=== PATIENT | male | born 1970 | race Caucasian/White ===

== ENCOUNTER → 2016-11-07 | Outpatient (REF) | payer OTHER ==
[2016-11-07 12:21] LABS: ALBUMIN 3.8 GM/DL (3.2-5.2); ALBUMIN/GLOBULIN RATIO 1.27 (1.00-1.93); ALKALINE PHOSPHATASE 96 U/L (45-117); ALT/SGPT 78 U/L (12-78); ANION GAP 11 MEQ/L (8-16); AST/SGOT 27 U/L (15-37); BILIRUBIN,TOTAL 0.4 MG/DL (0.2-1.0); BLOOD UREA NITROGEN 15 MG/DL (7-18); CALCIUM LEVEL 8.7 MG/DL (8.5-10.1); CARBON DIOXIDE LEVEL 26 MEQ/L (21-32); CHLORIDE LEVEL 103 MEQ/L (98-107); CHOLESTEROL LEVEL 171 MG/DL (<200); CREATININE FOR GFR 0.83 MG/DL (0.70-1.30); GLOMERULAR FILTRATION RATE > 60.0 (>60); GLUCOSE, FASTING 215 MG/DL (70-105); POTASSIUM SERUM 4.1 MEQ/L (3.5-5.1); SODIUM LEVEL 140 MEQ/L (136-145); TOTAL PROTEIN 6.8 GM/DL (6.4-8.2); TRIGLYCERIDES LEVEL 211 MG/DL (<150)
== END ==
LOC: M SFHCCLAY 09:24
PROVIDERS: ATTEND Family Medicine
DX: E11.9 Type 2 diabetes mellitus without complications (principal); E78.5 Hyperlipidemia, unspecified

== ENCOUNTER → 2017-01-13 | Outpatient (REF) | payer OTHER ==
[2017-01-13 13:22] LABS: ANION GAP 6 MEQ/L (8-16); BLOOD UREA NITROGEN 9 MG/DL (7-18); CALCIUM LEVEL 8.8 MG/DL (8.5-10.1); CARBON DIOXIDE LEVEL 29 MEQ/L (21-32); CHLORIDE LEVEL 103 MEQ/L (98-107); CREATININE FOR GFR 0.85 MG/DL (0.70-1.30); GLOMERULAR FILTRATION RATE > 60.0 (>60); GLUCOSE, FASTING 132 MG/DL (70-105); POTASSIUM SERUM 4.2 MEQ/L (3.5-5.1); SODIUM LEVEL 138 MEQ/L (136-145)
== END ==
LOC: M SFHCCLAY 08:54
PROVIDERS: ATTEND Family Medicine
DX: E11.9 Type 2 diabetes mellitus without complications (principal)

== ENCOUNTER → 2017-03-24 | Outpatient (CLI) | payer OTHER ==
--- NOTE | 2017-03-24 15:24 | REP ---
LEFT SHOULDER, THREE VIEWS: HISTORY: Pain. Postoperative change is present. A metal screw is present in the glenoid. There is no acute fracture or dislocation. There is narrowing of the glenohumeral joint space. IMPRESSION: Degenerative change as described above. Signed by Shadi Mendoza MD 03/24/2017 03:26 P
== END ==
LOC: M WUC 13:42
PROVIDERS: ATTEND Physician Assistant
DX: M19.012 Primary osteoarthritis, left shoulder (principal)

== ENCOUNTER → 2017-04-25 | Outpatient (REF) | payer OTHER ==
[2017-04-26 12:09] LABS: ALBUMIN 4.2 GM/DL (3.2-5.2); ALBUMIN/GLOBULIN RATIO 1.45 (1.00-1.93); ALKALINE PHOSPHATASE 82 U/L (45-117); ALT/SGPT 47 U/L (12-78); ANION GAP 4 MEQ/L (8-16); AST/SGOT 20 U/L (15-37); BILIRUBIN,TOTAL 0.5 MG/DL (0.2-1.0); BLOOD UREA NITROGEN 12 MG/DL (7-18); CALCIUM LEVEL 9.3 MG/DL (8.5-10.1); CARBON DIOXIDE LEVEL 31 MEQ/L (21-32); CHLORIDE LEVEL 105 MEQ/L (98-107); CREATININE FOR GFR 0.76 MG/DL (0.70-1.30); GLOMERULAR FILTRATION RATE > 60.0 (>60); GLUCOSE, FASTING 109 MG/DL (70-105); POTASSIUM SERUM 4.7 MEQ/L (3.5-5.1); SODIUM LEVEL 140 MEQ/L (136-145); TOTAL PROTEIN 7.1 GM/DL (6.4-8.2)
== END ==
LOC: M SFHCCLAY 13:54
PROVIDERS: ATTEND Family Medicine
DX: E11.9 Type 2 diabetes mellitus without complications (principal)

== ENCOUNTER 2017-08-23 00:59 | Emergency (ER) | payer OTHER ==
[2017-08-23] MEDS: ONDANSETRON 4MG/2ML VIAL (J2405) IV (02:00)
[2017-08-23] MEDS: MORPHINE 4 MG/ML 1ML SYRINGE IV (02:00)
[2017-08-23] MEDS: ACETAMINOPHEN TAB 650MG DOSE (2X325MG) PO (02:00)
[2017-08-23 02:08] LABS: BASO % 0.3 % (0.0-1.0); EOS # 0.1 10^3/uL (0.0-0.50); EOS % 0.4 % (0.0-3.0); HEMATOCRIT 43.1 % (42.0-52.0); IMMATURE GRANULOCYTE # 0.1 10^3/uL (0-0); IMMATURE GRANULOCYTE % 0.4 % (0-0); LYMPH # 1.4 10^3/uL (1.5-4.5); LYMPH % 10.1 % (24.0-44.0); MEAN CORPUSCULAR HEMOGLOBIN 33.1 pg (27.0-33.0); MEAN CORPUSCULAR HGB CONC 34.8 g/dl (32.0-36.5); MEAN CORPUSCULAR VOLUME 95.1 fl (80.0-96.0); MONO # 1.5 10^3/uL (0.0-0.8); MONO % 10.4 % (0.0-5.0); NEUTROPHILS # 10.9 10^3/uL (1.8-7.7); NEUTROPHILS % 78.4 % (36.0-66.0); PLATELET COUNT, AUTOMATED 179 10^3/uL (150-450); RED BLOOD COUNT 4.53 10^6/uL (4.30-6.10); RED CELL DISTRIBUTION WIDTH 11.9 % (11.5-14.5); WHITE BLOOD COUNT 13.9 10^3/uL (4.0-10.0)
[2017-08-23 02:26] LABS: ESTIMATED AVERAGE GLUCOSE 166 MG/DL (60-110); HEMOGLOBIN A1c 7.4 %
[2017-08-23 02:31] LABS: ANION GAP 6 MEQ/L (8-16); BLOOD UREA NITROGEN 10 MG/DL (7-18); CARBON DIOXIDE LEVEL 30 MEQ/L (21-32); CHLORIDE LEVEL 99 MEQ/L (98-107); CREATININE FOR GFR 0.99 MG/DL (0.70-1.30); GLOMERULAR FILTRATION RATE > 60.0 (>60); GLUCOSE, FASTING 237 MG/DL (70-100); SODIUM LEVEL 135 MEQ/L (136-145)
[2017-08-23 02:34] LABS: LACTIC ACID SEPSIS PROTOCOL 1.1 MMOL/L (0.4-2.0)
[2017-08-23] MEDS ORDERED: ISOVUE-370 76% 100ML VIAL (Q9967) As Ordered (02:40)
[2017-08-23] MEDS ORDERED: BUPIVACAINE HCL 0.5% 10 ML VIAL As Ordered (05:18)
[2017-08-23] MEDS ORDERED: LIDOCAINE W/EPINEPHRINE 1% 20ML VIAL As Ordered (05:18)
[2017-08-23] MEDS: AMPICILLIN SOD/SULBACTAM SOD 3 GM in D5W MINI-BAG PLUS 100 ML IV (06:00)
[2017-08-23] MEDS ORDERED: NORCO 5/325MG TABLET (BULK FOR ED) PO (06:45)
== END 2017-08-23 06:58 | disposition home or self-care (01) ==
LOC: M ED 00:59
DX: K61.0 Anal abscess (principal); E11.9 Type 2 diabetes mellitus without complications; I10 Essential (primary) hypertension; Z79.84 Long term (current) use of oral hypoglycemic drugs; Z79.899 Other long term (current) drug therapy; Z88.8 Allergy status to other drugs, medicaments and biological substances
CPT/HCPCS: J2405

== ENCOUNTER 2017-08-23 15:49 | Emergency (ER) | payer OTHER ==
[2017-08-23] MEDS: AMPICILLIN SOD/SULBACTAM SOD 3 GM in D5W MINI-BAG PLUS 100 ML IV (17:29)
== END 2017-08-23 18:30 | disposition home or self-care (01) ==
LOC: M ED 15:49
DX: K61.0 Anal abscess (principal); E11.9 Type 2 diabetes mellitus without complications; I10 Essential (primary) hypertension; F41.9 Anxiety disorder, unspecified; F33.9 Major depressive disorder, recurrent, unspecified; Z79.2 Long term (current) use of antibiotics; Z79.84 Long term (current) use of oral hypoglycemic drugs; Z79.899 Other long term (current) drug therapy; Z88.8 Allergy status to other drugs, medicaments and biological substances; Z98.890 Other specified postprocedural states; Z87.891 Personal history of nicotine dependence
CPT/HCPCS: 96365

== ENCOUNTER → 2017-10-03 | Outpatient (REF) | payer OTHER ==
[2017-10-04 14:06] LABS: ALBUMIN 4.1 GM/DL (3.2-5.2); ALBUMIN/GLOBULIN RATIO 1.24 (1.00-1.93); ALKALINE PHOSPHATASE 103 U/L (45-117); ALT/SGPT 103 U/L (12-78); ANION GAP 9 MEQ/L (8-16); AST/SGOT 41 U/L (7-37); BILIRUBIN,TOTAL 0.6 MG/DL (0.2-1.0); BLOOD UREA NITROGEN 9 MG/DL (7-18); CALCIUM LEVEL 9.5 MG/DL (8.5-10.1); CARBON DIOXIDE LEVEL 26 MEQ/L (21-32); CHLORIDE LEVEL 103 MEQ/L (98-107); CHOLESTEROL LEVEL 196 MG/DL (<200); CREATININE FOR GFR 0.84 MG/DL (0.70-1.30); GLOMERULAR FILTRATION RATE > 60.0 (>60); GLUCOSE, FASTING 223 MG/DL (70-100); HDL CHOLESTEROL 40 MG/DL (>40); LDL CHOLESTEROL 92.8 MG/DL (<100); NON-HDL-C 156 MG/DL; POTASSIUM SERUM 4.6 MEQ/L (3.5-5.1); SODIUM LEVEL 138 MEQ/L (136-145); TOTAL PROTEIN 7.4 GM/DL (6.4-8.2); TRIGLYCERIDES LEVEL 316 MG/DL (<150)
[2017-10-04 15:53] LABS: ESTIMATED AVERAGE GLUCOSE 217 MG/DL (60-110); HEMOGLOBIN A1c 9.2 %
== END ==
LOC: M SFHCCLAY 11:17
DX: E11.9 Type 2 diabetes mellitus without complications (principal); E78.5 Hyperlipidemia, unspecified

== ENCOUNTER → 2018-01-05 | Outpatient (REF) | payer OTHER ==
[2018-01-05 16:43] LABS: ALBUMIN 4.1 GM/DL (3.2-5.2); ALBUMIN/GLOBULIN RATIO 1.28 (1.00-1.93); ALKALINE PHOSPHATASE 85 U/L (45-117); ALT/SGPT 111 U/L (12-78); ANION GAP 6 MEQ/L (8-16); AST/SGOT 41 U/L (7-37); BILIRUBIN,TOTAL 0.3 MG/DL (0.2-1.0); BLOOD UREA NITROGEN 13 MG/DL (7-18); CALCIUM LEVEL 9.4 MG/DL (8.5-10.1); CARBON DIOXIDE LEVEL 28 MEQ/L (21-32); CHLORIDE LEVEL 104 MEQ/L (98-107); CREATININE FOR GFR 0.86 MG/DL (0.70-1.30); GLOMERULAR FILTRATION RATE > 60.0 (>60); GLUCOSE, FASTING 144 MG/DL (70-100); POTASSIUM SERUM 4.4 MEQ/L (3.5-5.1); SODIUM LEVEL 138 MEQ/L (136-145); TOTAL PROTEIN 7.3 GM/DL (6.4-8.2)
[2018-01-05 16:48] LABS: ESTIMATED AVERAGE GLUCOSE 177 MG/DL (60-110); HEMOGLOBIN A1c 7.8 %
== END ==
LOC: M SFHCCLAY 11:14
DX: E11.9 Type 2 diabetes mellitus without complications (principal)

== ENCOUNTER → 2018-06-07 | Outpatient (REF) | payer OTHER ==
[2018-06-08 12:31] LABS: ALBUMIN 4.5 GM/DL (3.2-5.2); ALBUMIN/GLOBULIN RATIO 1.36 (1.00-1.93); ALKALINE PHOSPHATASE 80 U/L (45-117); ALT/SGPT 76 U/L (12-78); ANION GAP 6 MEQ/L (8-16); AST/SGOT 31 U/L (7-37); BILIRUBIN,TOTAL 0.4 MG/DL (0.2-1.0); BLOOD UREA NITROGEN 17 MG/DL (7-18); CALCIUM LEVEL 9.5 MG/DL (8.5-10.1); CARBON DIOXIDE LEVEL 28 MEQ/L (21-32); CHLORIDE LEVEL 101 MEQ/L (98-107); CREATININE FOR GFR 0.78 MG/DL (0.70-1.30); GLOMERULAR FILTRATION RATE > 60.0 (>60); GLUCOSE, FASTING 116 MG/DL (70-100); POTASSIUM SERUM 4.8 MEQ/L (3.5-5.1); SODIUM LEVEL 135 MEQ/L (136-145); TOTAL PROTEIN 7.8 GM/DL (6.4-8.2)
[2018-06-08 12:33] LABS: MALB URINE SIEMENS 25.4 MG/L
[2018-06-08 12:51] LABS: MAU/CREAT RATIO 19.1 MCG/MG (0.0-30.0)
[2018-06-08 15:21] LABS: ESTIMATED AVERAGE GLUCOSE 154 MG/DL (60-110)
== END ==
LOC: M SFHCCLAY 13:58
DX: E11.9 Type 2 diabetes mellitus without complications (principal)

== ENCOUNTER → 2018-09-11 | Outpatient (REF) | payer OTHER ==
[~2018-09-11] MED LIST: AUGM875T28 PO; CITA20TA4; ENAL10TA2; METF10004; NORCOTAB PO
[2018-09-11 12:10] LABS: ALBUMIN 4.1 GM/DL (3.2-5.2); ALT/SGPT 52 U/L (12-78); BILIRUBIN,TOTAL 0.3 MG/DL (0.2-1.0); BLOOD UREA NITROGEN 16 MG/DL (7-18); CARBON DIOXIDE LEVEL 28 MEQ/L (21-32); CHLORIDE LEVEL 105 MEQ/L (98-107); CHOLESTEROL LEVEL 177 MG/DL (<200); CHOLESTEROL RISK RATIO 3.933 (<5); CREATININE FOR GFR 0.77 MG/DL (0.70-1.30); GLOMERULAR FILTRATION RATE > 60.0 (>60); GLUCOSE, FASTING 146 MG/DL (70-100); HDL CHOLESTEROL 45 MG/DL (>40); LDL CHOLESTEROL 112 MG/DL (<100); NON-HDL-C 132 MG/DL; POTASSIUM SERUM 4.6 MEQ/L (3.5-5.1); SODIUM LEVEL 138 MEQ/L (136-145); TOTAL PROTEIN 6.8 GM/DL (6.4-8.2); TRIGLYCERIDES LEVEL 101 MG/DL (<150)
== END ==
LOC: M SFHCCLAY 08:41
PROVIDERS: ATTEND Family Medicine
DX: E11.9 Type 2 diabetes mellitus without complications (principal); E78.5 Hyperlipidemia, unspecified

== ENCOUNTER → 2018-12-07 | Outpatient (CLI) | payer OTHER ==
[~2018-12-07] MED LIST changes: -CITA20TA4; +CITA20TA6; +HYDR-3715 PO; -NORCOTAB PO
--- NOTE | 2018-12-07 17:03 | REP ---
HISTORY: Bronchitis. COMPARISON: 09/24/2015, which it the latest prior. FINDINGS: The superior mediastinal structures are midline. The cardiac silhouette is unremarkable in size, shape and position. The diaphragmatic surfaces of the lungs are regular and the costophrenic angles are clear. The pulmonary esteban are clear. The imaged osseous structures are intact. IMPRESSION: There is no acute cardiopulmonary disease. No significant change from the prior exam.
== END ==
LOC: M CLY 15:11
PROVIDERS: ATTEND Nurse Practitioner Family
DX: Z87.09 Personal history of other diseases of the respiratory system (principal)

== ENCOUNTER → 2018-12-28 | Outpatient (REF) | payer OTHER ==
[2018-12-28 17:01] LABS: ALBUMIN 4.3 GM/DL (3.2-5.2); ALT/SGPT 84 U/L (12-78); BILIRUBIN,TOTAL 0.7 MG/DL (0.2-1.0); BLOOD UREA NITROGEN 16 MG/DL (7-18); CALCIUM LEVEL 9.8 MG/DL (8.5-10.1); CARBON DIOXIDE LEVEL 28 MEQ/L (21-32); CHLORIDE LEVEL 102 MEQ/L (98-107); CREATININE FOR GFR 0.84 MG/DL (0.70-1.30); GLOMERULAR FILTRATION RATE > 60.0 (>60); GLUCOSE, FASTING 162 MG/DL (70-100); POTASSIUM SERUM 4.2 MEQ/L (3.5-5.1); SODIUM LEVEL 138 MEQ/L (136-145); TOTAL PROTEIN 7.2 GM/DL (6.4-8.2)
[2018-12-28 18:15] LABS: HEMOGLOBIN A1c 7.9 %
== END ==
LOC: M SFHCCLAY 09:14
PROVIDERS: ATTEND Family Medicine
DX: E11.9 Type 2 diabetes mellitus without complications (principal)

== ENCOUNTER → 2019-03-26 | Outpatient (REF) | payer OTHER ==
[2019-03-26 16:59] LABS: ALBUMIN 4.1 GM/DL (3.2-5.2); ALT/SGPT 44 U/L (12-78); BILIRUBIN,TOTAL 0.5 MG/DL (0.2-1.0); BLOOD UREA NITROGEN 17 MG/DL (7-18); CALCIUM LEVEL 9.4 MG/DL (8.5-10.1); CARBON DIOXIDE LEVEL 28 MEQ/L (21-32); CHLORIDE LEVEL 104 MEQ/L (98-107); GLOMERULAR FILTRATION RATE > 60.0 (>60); GLUCOSE, FASTING 115 MG/DL (70-100); POTASSIUM SERUM 4.2 MEQ/L (3.5-5.1); SODIUM LEVEL 138 MEQ/L (136-145); TOTAL PROTEIN 7.1 GM/DL (6.4-8.2)
[2019-03-26 17:15] LABS: HEMOGLOBIN A1c 6.5 %
== END ==
LOC: M SFHCCLAY 10:24
PROVIDERS: ATTEND Family Medicine
DX: I10 Essential (primary) hypertension (principal); E11.9 Type 2 diabetes mellitus without complications

== ENCOUNTER → 2019-07-04 | Outpatient (REF) | payer OTHER ==
[2019-07-04 11:52] LABS: BASO # 0.1 10^3/uL (0.0-0.2); BASO % 0.9 % (0.0-1.0); EOS # 0.2 10^3/uL (0.0-0.5); EOS % 3.6 % (0.0-3.0); HEMATOCRIT 47.5 % (42.0-52.0); HEMOGLOBIN 15.8 g/dl (13.5-17.5); LYMPH # 2.3 10^3/uL (1.5-5.0); LYMPH % 34.5 % (24.0-44.0); MEAN CORPUSCULAR HEMOGLOBIN 32.7 pg (27.0-33.0); MEAN CORPUSCULAR HGB CONC 33.3 g/dl (32.0-36.5); MEAN CORPUSCULAR VOLUME 98.3 fl (80.0-96.0); MONO # 0.6 10^3/uL (0.0-0.8); MONO % 9.6 % (0.0-5.0); NEUTROPHILS # 3.4 10^3/uL (1.5-8.5); NEUTROPHILS % 50.9 % (36.0-66.0); PLATELET COUNT, AUTOMATED 188 10^3/uL (150-450); RED BLOOD COUNT 4.83 10^6/uL (4.30-6.10); WHITE BLOOD COUNT 6.7 10^3/uL (4.0-10.0)
[2019-07-04 12:13] LABS: ERYTHROCYTE SEDIMENTATION RATE 7 mm/hr (0-15)
[2019-07-04 12:46] LABS: ALBUMIN 4.1 GM/DL (3.2-5.2); ALT/SGPT 43 U/L (12-78); BILIRUBIN,TOTAL 0.5 MG/DL (0.2-1.0); BLOOD UREA NITROGEN 12 MG/DL (7-18); C REACTIVE PROTEIN QUANTITATIV 0.38 MG/DL (0.00-0.30); CARBON DIOXIDE LEVEL 29 MEQ/L (21-32); CHLORIDE LEVEL 101 MEQ/L (98-107); CREATININE FOR GFR 0.78 MG/DL (0.70-1.30); GLOMERULAR FILTRATION RATE > 60.0 (>60); GLUCOSE, FASTING 118 MG/DL (70-100); RHEUMATOID FACTOR QUANT < 10.0 IU/ML (<15.0); SODIUM LEVEL 137 MEQ/L (136-145); TOTAL PROTEIN 7.5 GM/DL (6.4-8.2)
[2019-07-04 13:47] LABS: HEMOGLOBIN A1c 6.4 %
[2019-07-06 00:06] LABS: ANA (HEP2) Negative (.); CYCLIC CITRULLINATED PEPTIDE 7 units (0-19); Lyme Disease IgG/IgM Antibodie <0.91 ISR (0.00-0.90); Lyme Disease IgM Ab Quantitati <0.80 index (0.00-0.79)
== END ==
LOC: M SFHCCLAY 09:15
PROVIDERS: ATTEND Family Medicine
DX: E11.9 Type 2 diabetes mellitus without complications (principal)

== ENCOUNTER → 2019-09-14 | Outpatient (CLI) | payer OTHER ==
--- NOTE | 2019-09-14 14:24 | REPVR ---
PROCEDURE INFORMATION: Exam: MR Cervical Spine Without Contrast Exam date and time: 09/14/2019 9:03 AM Age: 49 years old Clinical indication: Neck pain and radicular pain (radiculopathy); Location of radicular pain not specified; Patient HX: Just increase pain and going down arms; Additional info: Radiculopathy, cervical region TECHNIQUE: Imaging protocol: Multiplanar magnetic resonance images of the cervical spine without contrast. COMPARISON: No relevant prior studies available. FINDINGS: Vertebrae: Unremarkable. Spinal cord: Normal signal. No cord compression. C2-C3: No significant disc disease. No significant spinal stenosis. C3-C4: There is bilateral uncovertebral joint arthropathy, worse on the right. There is moderate right-sided neuroforaminal narrowing. C4-C5: There is bilateral uncovertebral joint arthropathy, worse on the right. There is mild right-sided neuroforaminal narrowing. C5-C6: There is disc space narrowing and desiccation. There are moderate degenerative end plate changes at this level. There is a moderate disc/osteophyte complex that flattens the ventral thecal sac. There is bilateral uncovertebral joint arthropathy, worse on the right. There is moderate right-sided neuroforaminal narrowing. C6-C7: There is disc space narrowing and desiccation. There are moderate degenerative end plate changes at this level. There is a moderate disc/osteophyte complex that flattens the ventral thecal sac. There is moderate bilateral uncovertebral joint arthropathy. There is moderate bilateral neural foraminal narrowing. There is mild spinal canal stenosis. C7-T1: No significant disc disease. No significant spinal stenosis. Vertebral arteries: Expected flow voids in the vertebral arteries. Soft tissues: Unremarkable. IMPRESSION: Multilevel degenerative changes with variable degrees of spinal canal and neuroforaminal narrowing. Electronically signed by: Kwaku Escamilla On 09/14/2019 14:23:51 PM
== END ==
LOC: M RAD 08:31
PROVIDERS: ATTEND Orthopaedic Surgery Sports Medicine
DX: M54.12 Radiculopathy, cervical region (principal)

== ENCOUNTER → 2019-10-04 | Outpatient (REF) | payer OTHER ==
[2019-10-04 16:30] LABS: ALBUMIN 4.5 GM/DL (3.2-5.2); ALT/SGPT 37 U/L (12-78); BILIRUBIN,TOTAL 0.6 MG/DL (0.2-1.0); BLOOD UREA NITROGEN 11 MG/DL (7-18); CALCIUM LEVEL 10.1 MG/DL (8.5-10.1); CARBON DIOXIDE LEVEL 34 MEQ/L (21-32); CHLORIDE LEVEL 97 MEQ/L (98-107); CREATININE FOR GFR 0.81 MG/DL (0.70-1.30); GLOMERULAR FILTRATION RATE > 60.0 (>60); GLUCOSE, FASTING 115 MG/DL (70-100); POTASSIUM SERUM 3.8 MEQ/L (3.5-5.1); SODIUM LEVEL 135 MEQ/L (136-145); TOTAL PROTEIN 7.6 GM/DL (6.4-8.2)
[2019-10-04 16:53] LABS: HEMOGLOBIN A1c 6.5 %
== END ==
LOC: M SFHCCLAY 10:18
PROVIDERS: ATTEND Family Medicine
DX: E11.9 Type 2 diabetes mellitus without complications (principal)

== ENCOUNTER → 2020-07-06 | Outpatient (CLI) | payer OTHER ==
[~2020-07-06] MED LIST changes: +ENAL-36; -ENAL10TA2
== END ==
LOC: M LABSMTC 17:50
PROVIDERS: ATTEND Pediatrics
DX: Z20.828 Contact with and (suspected) exposure to other viral communicable diseases (principal)

== ENCOUNTER → 2020-07-16 | Outpatient (REF) | payer OTHER ==
[2020-07-16 12:03] LABS: BASO % 0.6 % (0.0-1.0); EOS # 0.2 10^3/uL (0.0-0.5); HEMATOCRIT 44.4 % (42.0-52.0); HEMOGLOBIN 14.9 g/dl (13.5-17.5); LYMPH # 2.6 10^3/uL (1.5-5.0); LYMPH % 36.6 % (24.0-44.0); MEAN CORPUSCULAR HEMOGLOBIN 32.5 pg (27.0-33.0); MEAN CORPUSCULAR HGB CONC 33.6 g/dl (32.0-36.5); MEAN CORPUSCULAR VOLUME 96.7 fl (80.0-96.0); MONO # 0.6 10^3/uL (0.0-0.8); MONO % 7.9 % (0.0-5.0); NEUTROPHILS # 3.7 10^3/uL (1.5-8.5); NEUTROPHILS % 51.8 % (36.0-66.0); PLATELET COUNT, AUTOMATED 177 10^3/uL (150-450); RED BLOOD COUNT 4.59 10^6/uL (4.30-6.10); WHITE BLOOD COUNT 7.1 10^3/uL (4.0-10.0)
[2020-07-16 12:33] LABS: CREATININE, URINE 79.6 MG/DL; MALB URINE SIEMENS 6.4 MG/L
[2020-07-16 14:08] LABS: ALBUMIN 4.1 GM/DL (3.2-5.2); ALT/SGPT 39 U/L (12-78); BILIRUBIN,TOTAL 0.3 MG/DL (0.2-1.0); BLOOD UREA NITROGEN 10 MG/DL (7-18); CALCIUM LEVEL 9.2 MG/DL (8.5-10.1); CARBON DIOXIDE LEVEL 29 MEQ/L (21-32); CHLORIDE LEVEL 105 MEQ/L (98-107); CHOLESTEROL LEVEL 155 MG/DL (<200); CHOLESTEROL RISK RATIO 4.305 (<5); CREATININE FOR GFR 0.84 MG/DL (0.70-1.30); GLOMERULAR FILTRATION RATE > 60.0 (>56); GLUCOSE, FASTING 125 MG/DL (70-100); HDL CHOLESTEROL 36 MG/DL (>40); LDL CHOLESTEROL 99 MG/DL (<100); NON-HDL-C 119 MG/DL; POTASSIUM SERUM 4.4 MEQ/L (3.5-5.1); SODIUM LEVEL 140 MEQ/L (136-145); TRIGLYCERIDES LEVEL 98 MG/DL (<150)
[2020-07-16 15:08] LABS: HEMOGLOBIN A1c 6.5 %
== END ==
LOC: M SFHCCLAY 08:11
PROVIDERS: ATTEND Family Medicine
DX: I10 Essential (primary) hypertension (principal); E11.9 Type 2 diabetes mellitus without complications

== ENCOUNTER → 2021-01-10 | Outpatient (CLI) | payer OTHER ==
[~2021-01-10] MED LIST changes: +THERTAB52 PO
== END ==
LOC: M LABSMTC 08:20
PROVIDERS: ATTEND Anesthesiology
DX: Z01.818 Encounter for other preprocedural examination (principal); Z11.52 Encounter for screening for COVID-19

== ENCOUNTER 2021-01-15 06:52 | Day surgery (SDC) | payer OTHER ==
[~2021-01-15] VITALS: Ht 170.2 cm; Wt 94.5 kg
[~2021-01-15 06:52] MED LIST changes: +NS 1,000 ML IV ONE
[2021-01-15] MEDS ORDERED: propofoL 200 MG/20 ML VIAL As Ordered ONE (07:07)
[2021-01-15] MEDS ORDERED: LIDOCAINE 2% 100MG/5ML SDV (FOR ANES.) As Ordered ONE (07:07)
--- NOTE | 2021-01-15 08:29 | ROOR ---
Patient Name: Shashank Decker Procedure Date: 01/15/2021 7:55 AM Date of : 1970 Age: 50 Room: [facility] Gender: Male Note Status: Finalized Procedure: Colonoscopy Indications: Screening for colorectal malignant neoplasm Providers: Matthew Hess MD Referring MD: RONAL ATWOOD DO Requesting Provider: Medicines: Monitored Anesthesia Care Complications: No immediate complications. Procedure: Pre-Anesthesia Assessment: - Prior to the procedure, a History and Physical was performed, and patient medications and allergies were reviewed. The patient is competent. The risks and benefits of the procedure and the sedation options and risks were discussed with the patient. All questions were answered and informed consent was obtained. Patient identification and proposed procedure were verified by the physician, the nurse and the anesthesiologist in the procedure room. Mental Status Examination: alert and oriented. Airway Examination: normal oropharyngeal airway and neck mobility. Respiratory Examination: clear to auscultation. CV Examination: normal. Prophylactic Antibiotics: The patient does not require prophylactic antibiotics. Prior Anticoagulants: The patient has taken no previous anticoagulant or antiplatelet agents. ASA Grade Assessment: II - A patient with mild systemic disease. After reviewing the risks and benefits, the patient was deemed in satisfactory condition to undergo the procedure. The anesthesia plan was to use monitored anesthesia care (MAC). Immediately prior to administration of medications, the patient was re-assessed for adequacy to receive sedatives. The heart rate, respiratory rate, oxygen saturations, blood pressure, adequacy of pulmonary ventilation, and response to care were monitored throughout the procedure. The physical status of the patient was re-assessed after the procedure. The Colonoscope was introduced through the anus and advanced to the terminal ileum, with identification of the appendiceal orifice and IC valve. The colonoscopy was performed without difficulty. The patient tolerated the procedure well. The quality of the bowel preparation was good. The terminal ileum, ileocecal valve, appendiceal orifice, and rectum were photographed. Scope insertion time was 1 minute. Scope withdrawal time was 9 minutes. The total duration of the procedure was 10 minutes. Findings: The perianal and digital rectal examinations were normal. The terminal ileum appeared normal. Five sessile polyps were found in the recto-sigmoid colon and ileocecal valve. The polyps were 4 to 12 mm in size. These polyps were removed with a hot snare. Resection and retrieval were complete. Verification of patient identification for the specimen was done by the physician and nurse using the patient's name, date and medical record number. Estimated blood loss was minimal. Scattered medium-mouthed diverticula were found from sigmoid to cecum. There was no evidence of diverticular bleeding. Non-bleeding external and internal hemorrhoids were found during retroflexion. The hemorrhoids were medium-sized. Impression: - The examined portion of the ileum was normal. - Five 4 to 12 mm polyps at the recto-sigmoid colon and at the ileocecal valve, removed with a hot snare. Resected and retrieved. - Mild diverticulosis from sigmoid to cecum. There was no evidence of diverticular bleeding. - Non-bleeding external and internal hemorrhoids. Recommendation: - Patient has a contact number available for emergencies. The signs and symptoms of potential delayed complications were discussed with the patient. Return to normal activities tomorrow. Written discharge instructions were provided to the patient. - High fiber diet. - Continue present medications. - Use fiber, for example Citrucel, Fibercon, Konsyl or Metamucil. - Await pathology results. - Repeat colonoscopy in 3 - 5 years for surveillance based on pathology results. - Telephone GI clinic for pathology results in 2 weeks. - Return to primary care physician. Procedure Code(s): --- Professional --- 39572, Colonoscopy, flexible; with removal of tumor(s), polyp(s), or other lesion(s) by snare technique Diagnosis Code(s): --- Professional --- Z12.11, Encounter for screening for malignant neoplasm of colon K64.8, Other hemorrhoids K63.5, Polyp of colon K57.30, Diverticulosis of large intestine without perforation or abscess without bleeding CPT copyright 2019 [employer]. All rights reserved. The codes documented in this report are preliminary and upon agronomy research manager review may be revised to meet current compliance requirements. Matthew Hess MD Matthew Hess MD 01/15/2021 8:29:01 AM Electronically signed by Matthew Hess MD Number of Addenda: 0 Note Initiated On: 01/15/2021 7:55 AM Estimated Blood Loss: Estimated blood loss: none.
[2021-01-15 08:49] VITALS: BP 180/100
== END 2021-01-15 08:51 | disposition home or self-care (01) ==
LOC: M OPP 06:52
PROVIDERS: ATTEND Internal Medicine Gastroenterology
DX: Z12.11 Encounter for screening for malignant neoplasm of colon (principal); K63.5 Polyp of colon; K57.30 Diverticulosis of large intestine without perforation or abscess without bleeding; K64.8 Other hemorrhoids; I10 Essential (primary) hypertension; M19.90 Unspecified osteoarthritis, unspecified site; F41.9 Anxiety disorder, unspecified; F32.9 Major depressive disorder, single episode, unspecified; Z88.6 Allergy status to analgesic agent; Z88.8 Allergy status to other drugs, medicaments and biological substances; Z79.899 Other long term (current) drug therapy; Z80.1 Family history of malignant neoplasm of trachea, bronchus and lung; Z80.43 Family history of malignant neoplasm of testis

== ENCOUNTER → 2021-10-11 | Outpatient (REF) | payer OTHER ==
[~2021-10-11] MED LIST changes: -NS 1,000 ML IV ONE
[2021-10-11 16:44] LABS: HEMOGLOBIN A1c 6.2 %
[2021-10-11 16:53] LABS: ALBUMIN 4.2 GM/DL (3.2-5.2); ALT/SGPT 39 U/L (12-78); BILIRUBIN,TOTAL 0.2 MG/DL (0.2-1.0); BLOOD UREA NITROGEN 14 MG/DL (7-18); CALCIUM LEVEL 9.8 MG/DL (8.5-10.1); CARBON DIOXIDE LEVEL 31 MEQ/L (21-32); CHLORIDE LEVEL 105 MEQ/L (98-107); CHOLESTEROL LEVEL 159 MG/DL (<200); CHOLESTEROL RISK RATIO 4.076 (<5); CREATININE FOR GFR 0.97 MG/DL (0.70-1.30); GLOMERULAR FILTRATION RATE > 60.0 (>56); GLUCOSE, FASTING 140 MG/DL (70-100); HDL CHOLESTEROL 39 MG/DL (>40); LDL CHOLESTEROL 97 MG/DL (<100); NON-HDL-C 120 MG/DL; POTASSIUM SERUM 4.7 MEQ/L (3.5-5.1); SODIUM LEVEL 140 MEQ/L (136-145); TRIGLYCERIDES LEVEL 117 MG/DL (<150)
== END ==
LOC: M SFHCCLAY 10:49
PROVIDERS: ATTEND Family Medicine
DX: E11.9 Type 2 diabetes mellitus without complications (principal)

== ENCOUNTER → 2022-02-04 | Outpatient (REF) | payer OTHER | LOC: M SFHCCLAY 11:35 | PROVIDERS: ATTEND Nurse Practitioner Family | DX: R05.1 Acute cough (principal) ==

== ENCOUNTER → 2022-07-11 | Outpatient (REF) | payer OTHER ==
[2022-07-11 17:46] LABS: BASO # 0.1 10^3/uL (0.0-0.2); BASO % 0.7 % (0.0-1.0); EOS # 0.2 10^3/uL (0.0-0.5); EOS % 2.6 % (0.0-3.0); HEMATOCRIT 46.9 % (42.0-52.0); HEMOGLOBIN 15.6 g/dl (13.5-17.5); LYMPH # 2.5 10^3/uL (1.5-5.0); LYMPH % 30.2 % (24.0-44.0); MEAN CORPUSCULAR HEMOGLOBIN 32.3 pg (27.0-33.0); MEAN CORPUSCULAR HGB CONC 33.3 g/dl (32.0-36.5); MEAN CORPUSCULAR VOLUME 97.1 fl (80.0-96.0); MONO # 0.6 10^3/uL (0.0-0.8); NEUTROPHILS # 4.8 10^3/uL (1.5-8.5); NEUTROPHILS % 59.1 % (36.0-66.0); PLATELET COUNT, AUTOMATED 220 10^3/uL (150-450); RED BLOOD COUNT 4.83 10^6/uL (4.30-6.10); WHITE BLOOD COUNT 8.2 10^3/uL (4.0-10.0)
[2022-07-11 18:00] LABS: THYROID STIMULATING HORMONE 1.289 uIU/ML (0.55-4.78)
[2022-07-11 18:01] LABS: FREE T4 1.22 NG/DL (0.89-1.76)
[2022-07-11 18:04] LABS: ALBUMIN 4.4 G/DL (3.2-5.2); ALKALINE PHOSPHATASE 81 U/L (46-116); ALT/SGPT 35 U/L (7.0-40); AST/SGOT 23 U/L (<34); BILIRUBIN,TOTAL 0.4 MG/DL (0.3-1.2); BLOOD UREA NITROGEN 11 MG/DL (9-23); CARBON DIOXIDE LEVEL 27 MMOL/L (20-31); CHLORIDE LEVEL 103 MMOL/L (98-107); CREATININE FOR GFR 0.74 MG/DL (0.70-1.30); GLOMERULAR FILTRATION RATE > 60.0 (>56); GLUCOSE, FASTING 138 MG/DL (60-100); POTASSIUM SERUM 4.8 MMOL/L (3.5-5.1); SODIUM LEVEL 136 MMOL/L (136-145); TOTAL PROTEIN 7.1 G/DL (5.7-8.2)
== END ==
LOC: M SFHCCLAY 14:56
PROVIDERS: ATTEND Family Medicine
DX: I10 Essential (primary) hypertension (principal); E11.9 Type 2 diabetes mellitus without complications

== ENCOUNTER → 2023-07-17 | Outpatient (REF) | payer OTHER ==
[~2023-07-17] MED LIST changes: -ENAL-36; +ENAL1TAB50
[2023-07-17 19:53] LABS: HEMOGLOBIN A1c 11.4 % (4.0-6.0)
[2023-07-17 20:04] LABS: ALBUMIN 4.5 G/DL (3.2-5.2); ALKALINE PHOSPHATASE 98 U/L (46-116); ALT/SGPT 77 U/L (7.0-40); AST/SGOT 25 U/L (<34); BILIRUBIN,TOTAL 0.4 MG/DL (0.3-1.2); BLOOD UREA NITROGEN 15 MG/DL (9-23); CALCIUM LEVEL 10.7 MG/DL (8.5-10.1); CARBON DIOXIDE LEVEL 28 MMOL/L (20-31); CHLORIDE LEVEL 100 MMOL/L (98-107); CHOLESTEROL LEVEL 195 MG/DL (<200); CHOLESTEROL RISK RATIO 4.96 (<5); GLOMERULAR FILTRATION RATE > 60.0 (>56); GLUCOSE, FASTING 281 MG/DL (60-100); HDL CHOLESTEROL 39.3 MG/DL (>40); LDL CHOLESTEROL 111.9 MG/DL (<100); NON-HDL-C 155.7 MG/DL; POTASSIUM SERUM 5.5 MMOL/L (3.5-5.1); SODIUM LEVEL 134 MMOL/L (136-145); TOTAL PROTEIN 7.4 G/DL (5.7-8.2); TRIGLYCERIDES LEVEL 219 MG/DL (<150)
== END ==
LOC: M SFHCCLAY 11:53
PROVIDERS: ATTEND Family Medicine
DX: E11.9 Type 2 diabetes mellitus without complications (principal); E78.5 Hyperlipidemia, unspecified

== ENCOUNTER → 2023-08-27 | Outpatient (CLI) | payer OTHER | LOC: M SLEEP 20:00 | PROVIDERS: ATTEND Physician Assistant | DX: G47.33 Obstructive sleep apnea (adult) (pediatric) (principal) ==

== ENCOUNTER → 2023-10-16 | Outpatient (REF) | payer OTHER ==
[2023-10-16 18:13] LABS: BASO # 0.1 10^3/uL (0.0-0.2); BASO % 0.7 % (0.0-1.0); EOS # 0.2 10^3/uL (0.0-0.5); EOS % 2.5 % (0.0-3.0); HEMATOCRIT 43.3 % (42.0-52.0); HEMOGLOBIN 14.8 g/dl (13.5-17.5); LYMPH # 2.1 10^3/uL (1.5-5.0); LYMPH % 29.9 % (24.0-44.0); MEAN CORPUSCULAR HEMOGLOBIN 33.2 pg (27.0-33.0); MEAN CORPUSCULAR HGB CONC 34.2 g/dl (32.0-36.5); MEAN CORPUSCULAR VOLUME 97.1 fl (80.0-96.0); MONO # 0.5 10^3/uL (0.0-0.8); MONO % 7.5 % (2.0-8.0); NEUTROPHILS # 4.2 10^3/uL (1.5-8.5); NEUTROPHILS % 59.3 % (36.0-66.0); PLATELET COUNT, AUTOMATED 218 10^3/uL (150-450); RED BLOOD COUNT 4.46 10^6/uL (4.30-6.10); WHITE BLOOD COUNT 7.2 10^3/uL (4.0-10.0)
[2023-10-16 18:31] LABS: HEMOGLOBIN A1c 7.6 % (4.0-6.0)
[2023-10-16 18:37] LABS: URIC ACID 4.8 MG/DL (3.7-9.2)
[2023-10-16 18:38] LABS: ERYTHROCYTE SEDIMENTATION RATE 12 mm/hr (0-20)
[2023-10-16 18:39] LABS: ALBUMIN 4.3 G/DL (3.2-5.2); ALKALINE PHOSPHATASE 74 U/L (46-116); ALT/SGPT 35 U/L (7.0-40); AST/SGOT 14 U/L (<34); BILIRUBIN,TOTAL 0.4 MG/DL (0.3-1.2); BLOOD UREA NITROGEN 15 MG/DL (9-23); CARBON DIOXIDE LEVEL 32 MMOL/L (20-31); CHLORIDE LEVEL 104 MMOL/L (98-107); CREATININE FOR GFR 0.73 MG/DL (0.70-1.30); GLOMERULAR FILTRATION RATE > 60.0 (>56); GLUCOSE, FASTING 116 MG/DL (60-100); POTASSIUM SERUM 4.7 MMOL/L (3.5-5.1); SODIUM LEVEL 138 MMOL/L (136-145); TOTAL PROTEIN 6.9 G/DL (5.7-8.2)
[2023-10-16 18:54] LABS: RHEUMATOID FACTOR QUANT 8.8 IU/ML (<14)
[2023-10-19 01:17] LABS: ANA (HEP2) Negative (.); CYCLIC CITRULLINATED PEPTIDE < 1 units (0-19)
== END ==
LOC: M SFHCCLAY 12:00
PROVIDERS: ATTEND Family Medicine
DX: E11.9 Type 2 diabetes mellitus without complications (principal); M25.50 Pain in unspecified joint

== ENCOUNTER → 2024-01-15 | Outpatient (REF) | payer OTHER ==
[2024-01-15 18:04] LABS: ALBUMIN 4.4 G/DL (3.2-5.2); ALKALINE PHOSPHATASE 73 U/L (46-116); ALT/SGPT 36 U/L (7.0-40); AST/SGOT 15 U/L (<34); BILIRUBIN,TOTAL 0.4 MG/DL (0.3-1.2); BLOOD UREA NITROGEN 18 MG/DL (9-23); CALCIUM LEVEL 9.4 MG/DL (8.5-10.1); CARBON DIOXIDE LEVEL 31 MMOL/L (20-31); CHLORIDE LEVEL 104 MMOL/L (98-107); CREATININE FOR GFR 0.79 MG/DL (0.70-1.30); GLOMERULAR FILTRATION RATE > 60.0 (>56); GLUCOSE, FASTING 129 MG/DL (60-100); SODIUM LEVEL 137 MMOL/L (136-145); TOTAL PROTEIN 6.9 G/DL (5.7-8.2)
[2024-01-15 18:45] LABS: HEMOGLOBIN A1c 6.5 % (4.0-6.0)
== END ==
LOC: M SFHCCLAY 10:29
PROVIDERS: ATTEND Family Medicine
DX: E11.9 Type 2 diabetes mellitus without complications (principal)

== ENCOUNTER → 2024-07-16 | Outpatient (REF) | payer OTHER ==
[2024-07-16 12:11] LABS: HEMATOCRIT 42.5 % (42.0-52.0); HEMOGLOBIN 14.6 g/dl (13.5-17.5); MEAN CORPUSCULAR HGB CONC 34.4 g/dl (32.0-36.5); MEAN CORPUSCULAR VOLUME 96.2 fl (80.0-96.0); PLATELET COUNT, AUTOMATED 222 10^3/uL (150-450); RED BLOOD COUNT 4.42 10^6/uL (4.30-6.10); WHITE BLOOD COUNT 9.3 10^3/uL (4.0-10.0)
[2024-07-16 12:17] LABS: HEMOGLOBIN A1c 6.9 % (4.0-6.0)
[2024-07-16 12:25] LABS: PSA SCREENING 0.28 NG/ML (< 4.00)
[2024-07-16 12:29] LABS: ALBUMIN 4.3 G/DL (3.2-5.2); ALKALINE PHOSPHATASE 85 U/L (40-129); ALT/SGPT 43 U/L (7.0-40); AST/SGOT 23 U/L (<34); BILIRUBIN,TOTAL 0.4 MG/DL (0.3-1.2); BLOOD UREA NITROGEN 16 MG/DL (9-23); CALCIUM LEVEL 10.2 MG/DL (8.5-10.1); CARBON DIOXIDE LEVEL 28 MMOL/L (20-31); CHLORIDE LEVEL 102 MMOL/L (98-107); CHOLESTEROL LEVEL 157 MG/DL (<200); CHOLESTEROL RISK RATIO 4.03 (<5); CREATININE FOR GFR 0.73 MG/DL (0.70-1.30); GLOMERULAR FILTRATION RATE > 60.0 (>56); GLUCOSE, FASTING 141 MG/DL (60-100); HDL CHOLESTEROL 38.9 MG/DL (>40); LDL CHOLESTEROL 90.9 MG/DL (<100); NON-HDL-C 118.1 MG/DL; POTASSIUM SERUM 4.7 MMOL/L (3.5-5.1); SODIUM LEVEL 138 MMOL/L (136-145); THYROID STIMULATING HORMONE 2.845 uIU/ML (0.55-4.78); TOTAL PROTEIN 7.3 G/DL (5.7-8.2); TRIGLYCERIDES LEVEL 136 MG/DL (<150)
== END ==
LOC: M SFHCCLAY 07:57
PROVIDERS: ATTEND Family Medicine
DX: L72.3 Sebaceous cyst (principal); E11.9 Type 2 diabetes mellitus without complications; E78.5 Hyperlipidemia, unspecified; I10 Essential (primary) hypertension; Z12.5 Encounter for screening for malignant neoplasm of prostate

== ENCOUNTER → 2025-02-11 | Outpatient (REF) | payer OTHER ==
[2025-02-11 19:07] LABS: ALT/SGPT 41 U/L (7.0-40); AST/SGOT 28 U/L (<34); CALCIUM LEVEL 9.7 MG/DL (8.5-10.1); CARBON DIOXIDE LEVEL 27 MMOL/L (20-31); CHLORIDE LEVEL 103 MMOL/L (98-107); CREATININE FOR GFR 0.81 MG/DL (0.70-1.30); GLOMERULAR FILTRATION RATE > 90.0 (>56); POTASSIUM SERUM 4.3 MMOL/L (3.5-5.1); SODIUM LEVEL 139 MMOL/L (136-145)
[2025-02-11 19:56] LABS: ESTIMATED AVERAGE GLUCOSE 148.0 MG/DL (60-110)
== END ==
LOC: M SFHCCLAY 14:27
PROVIDERS: ATTEND Family Medicine
DX: I10 Essential (primary) hypertension (principal); E11.9 Type 2 diabetes mellitus without complications